=== PATIENT | female | born 1985 | race Two or more races ===

== ENCOUNTER 2024-02-19 15:38 | Emergency (ER) | payer OTHER, MEDICAID, SELFPAY ==
[2024-02-19 16:07] VITALS: BP 117/78; PULSE 86; RESP 19; TEMP 36.8; O2SAT 98
[2024-02-19 16:08] VITALS: BMI 26.8
--- NOTE | 2024-02-19 16:12 | XR_ITS ---
Examination: Complete OB ultrasound greater than 14 weeks Date and time of exam: February 19, 2024 1709 hours INDICATIONS: Early by history with onset pelvic pain beginning 2 days ago Findings: Viable intrauterine single fetus with single amniotic sac presentation variable Cardiac motion 140 BPM Placenta posterior grade 1 Umbilical cord insertion seen Amniotic fluid index 10.3 cm Cervix 7.7 cm Ovaries obscured by the uterus Uterine masses right lateral 6.2 x 5.5 x 4.3 cm anterior uterus 6.5 x 7.1 x 7.7 cm posterior uterus 7.1 x 6.3 x 6.6 cm. Composite estimated gestational age based on BPD, head circumference, abdominal circumference, femur length is 15 weeks 4 days Estimated weight 143.8 g Cervix 7.7 cm closed. Survey of intracranial anatomy, spinal anatomy, abdominal anatomy, four-chamber heart performed with no abnormalities identified. IMPRESSION: Viable intrauterine gestation Large uterine areas of fibroid degeneration as above.
--- NOTE | 2024-02-19 16:12 | PD.EDRME ---
Rapid Medical Screening Exam RME Arrival date/time: 02/19/24 15:38 39-year-old female approximately 14 weeks presents emergency department complains of lower abdominal pain, pelvic pain and back pain Chief Complaint: Abdominal Pain Time Seen by Provider: 02/19/24 16:10 Vital signs: Vital Signs Temperature 98.2 F 02/19/24 16:07 Pulse Rate 86 02/19/24 16:07 Respiratory Rate 19 02/19/24 16:07 Blood Pressure 117/78 02/19/24 16:07 Pulse Oximetry (%) 98 02/19/24 16:07 Oxygen Delivery Method Room Air 02/19/24 16:07
[2024-02-19 16:36] LABS: Basophils % (Auto) 0 % (0-2.5); Eosinophils # (Auto) 0.1 Thou/mm3 (0.0-0.5); Eosinophils % (Auto) 1 % (0-10); Hematocrit 33.5 % (36.0-46.0); Hemoglobin 11.7 g/dL (12.0-16.0); Immature Granulocytes % (Auto) 1 % (0-0); Immature Granulocytes Auto 0.06 Thou/mm3 (0.00-0.00); Lymphocytes % (Auto) 17 % (10-50); Mean Corpuscular HGB Conc 34.9 g/dl (31.0-37.0); Mean Corpuscular Hemoglobin 31.1 pg (25.0-35.0); Mean Corpuscular Volume 89 fL (80-100); Monocytes # (Auto) 0.8 Thou/mm3 (0.0-0.8); Monocytes % (Auto) 6 % (0-12); Neutrophils # (Auto) 9.1 Thou/mm3 (1.8-7.7); Neutrophils % (Auto) 75 % (37-80); Nucleated Red Blood Cell % 0 /100 WBC (0); Platelet Count 267 Thou/mm3 (140-440); RDW Standard Deviation 42.1 fL (36.4-46.3); Red Blood Count 3.76 Miln/mm3 (4.00-5.20); White Blood Count 12.1 Thou/mm3 (3.6-11.0)
[2024-02-19 16:53] LABS: Collection Type, Urine Clean Catch
[2024-02-19 17:04] LABS: Alanine Aminotransferase 12 U/L (10-49); Albumin, Serum 4.2 gm/dL (3.5-5.0); Albumin/Globulin Ratio 1.4 (1.2-2.2); Alkaline Phosphatase 86 U/L (46-116); Anion Gap 7 (7-16); Aspartate Amino Transferase 10 U/L (0-34); BUN/Creatinine Ratio 12 Ratio (12-20); Bilirubin,Total 0.3 mg/dL (0.3-1.2); Blood Urea Nitrogen 7 mg/dL (9-23); Calcium 9.5 mg/dL (8.3-10.6); Calcium (Corrected) 9.5 mg/dL (8.5-10.1); Carbon Dioxide 23.4 mMol/L (20.0-31.0); Chloride 104 mMol/L (98-107); Creatinine (Component) 0.6 mg/dL (0.6-1.3); Estimated Creatinine Clearance 121.6 mL/min (>60); Globulin 3.1 gm/dL (2.3-3.5); Glucose 100 mg/dL (74-106); Osmolality,Calculated 266 (275-295); Potassium 4.2 mMol/L (3.4-5.1); Sodium 134 mMol/L (136-145); Total Protein 7.3 gm/dL (5.7-8.2); eGFR > 60 See Note
[2024-02-19 17:14] LABS: Bilirubin,Urine Negative (Negative); Blood,Urine Negative (Negative); Clarity,Urine Clear (Clear/Hazy); Color,Urine Colorless (Lt Yel-Yel); Glucose, Urine Negative (Negative); Ketones,Urine Negative (Negative); Leukocyte Esterase,Urine Negative (Negative); Nitrite,Urine Negative (Negative); PH,Urine 6.5 (5.0-7.0); Protein,Urine Negative (Neg - Trace); RBC,Urine < 1 /hpf (0-3); Specific Gravity,Urine 1.009 (1.001-1.035); Squamous Epithelial Cell,Urine < 1 /hpf (0-5); Urobilinogen,Urine Negative mg/dL (0.0-1.0); WBC,Urine 1 /hpf (0-5)
[2024-02-19 17:26] LABS: Beta HCG,Quantitative 30093 mIU/mL (<5.0)
--- NOTE | 2024-02-19 19:51 | PD.EDABDPN ---
ED Abdominal Pain RME/HPI General Chief Complaint: Abdominal Pain Stated complaint: lower abd/back pain x 3 days. 14 wks Time seen by provider: 02/19/24 16:10 Arrival date/time: 02/19/24 15:38 39-year-old female approximately 14 weeks 1 para 0 presents emergency department complaining of lower abdominal and back pain that is been ongoing since Monday. Patient denies any vaginal bleeding, chills, fever, dysuria, or any other associated symptom. Source: patient Mode of arrival: ambulatory Limitations: no limitations RME / HPI RME / HPI narrative: 02/19/24 15:38 39-year-old female approximately 14 weeks presents emergency department complains of lower abdominal pain, pelvic pain and back pain Related Data Previous Rx's ?Medication ?Instructions ?Recorded acetaminophen 325 mg capsule 325 mg PO QID PRN pain #30 caps 02/19/24 Allergies Allergy/AdvReac Type Severity Reaction Status Date / Time No Known Allergies Allergy Verified 02/19/24 15:39 Review of Systems Review of Systems Systems Reviewed: All systems reviewed, normal except as documented Constitutional Constitutional: Reports system reviewed and no additional complaints, except as documented, Denies body ache(s), Denies chills and Denies fever(s) Eyes Eyes: Reports system reviewed and no additional complaints, except as documented and Denies change in vision ENT Ears, Nose, Mouth, and Throat: Reports system reviewed and no additional complaints, except as documented, Denies disequilibrium, Denies dizziness, Denies sore throat and Denies vertigo Cardiovascular Cardiovascular: Reports system reviewed and no additional complaints, except as documented, Denies chest pain and Denies dyspnea Respiratory Respiratory: Reports system reviewed and no additional complaints, except as documented, Denies chest congestion, Denies cough and Denies dyspnea Gastrointestinal Gastrointestinal: Reports system reviewed and no additional complaints, except as documented, Reports abdominal pain, Denies nausea and Denies vomiting Musculoskeletal Musculoskeletal: Reports system reviewed and no additional complaints, except as documented, Denies abnormal gait, Denies arthralgias and Reports back pain Integumentary/Breasts Skin/Breast: Reports system reviewed and no additional complaints, except as documented, Denies erythema, Denies rash and Denies wounds Neurologic Neurologic: Reports system reviewed and no additional complaints, except as documented, Denies abnormal gait, Denies disequilibrium, Denies dizziness and Denies vertigo Past Medical History Past Medical History CARDIAC: Negative Congestive Heart Failure RESPIRATORY: Negative Chronic Obstructive Pulmonary Disease (COPD) GENITOURINARY: Negative Renal Disease ENDOCRINE: Negative Diabetes Mellitus Type 1 or Diabetes Mellitus Type 2 Social History SMOKING STATUS: Never smoker ED Exam General Limitations: Present no limitations General appearance: Present alert and in no apparent distress Head Head exam: Present atraumatic Eye Eye exam: Present normal appearance, PERRL and EOMI ENT ENT exam: Present normal exam, normal oropharynx and mucous membranes moist Neck Neck exam: Present normal inspection, full ROM and trachea midline Chest Chest inspection: Present normal inspection and symmetric chest wall rise Respiratory Respiratory exam: Present normal lung sounds bilaterally Cardiovascular Cardiovascular exam: Present regular rate, normal rhythm and normal heart sounds Abdominal Exam Abdominal exam: Present soft and normal bowel sounds; Absent tenderness Extremities Exam Extremities exam: Present normal inspection and full ROM Back Exam Back exam: Present normal inspection and full ROM Neurological Exam Neurological exam: Present alert, oriented X3 and CN II-XII intact Psychiatric Psychiatric exam: Present normal affect and normal mood Skin Skin exam: Present warm, dry, intact and normal color Course Course Course Narrative: Examination: Complete OB ultrasound greater than 14 weeks Date and time of exam: February 19, 2024 1709 hours INDICATIONS: Early by history with onset pelvic pain beginning 2 days ago Findings: Viable intrauterine single fetus with single amniotic sac presentation variable Cardiac motion 140 BPM Placenta posterior grade 1 Umbilical cord insertion seen Amniotic fluid index 10.3 cm Cervix 7.7 cm Ovaries obscured by the uterus Uterine masses right lateral 6.2 x 5.5 x 4.3 cm anterior uterus 6.5 x 7.1 x 7.7 cm posterior uterus 7.1 x 6.3 x 6.6 cm. Composite estimated gestational age based on BPD, head circumference, abdominal circumference, femur length is 15 weeks 4 days Estimated weight 143.8 g Cervix 7.7 cm closed. Survey of intracranial anatomy, spinal anatomy, abdominal anatomy, four-chamber heart performed with no abnormalities identified. IMPRESSION: Viable intrauterine gestation Large uterine areas of fibroid degeneration as above. Quality Measures none Orders Category Date Time Status US OB >= 14 weeks Fetus Stat Exams 02/19/24 16:12 Completed ABO/RH Type Stat Lab 02/19/24 16:19 Completed Beta HCG,Quantitative Stat Lab 02/19/24 16:19 Completed CBC Stat Lab 02/19/24 16:19 Completed Comprehensive Metabolic Panel Stat Lab 02/19/24 16:19 Completed UA [Urinalysis] Stat Lab 02/19/24 16:39 Completed Urine Culture Stat Lab 02/19/24 16:39 Received Vital Signs Vital signs: Vital Signs Temperature 98.2 F 02/19/24 16:07 Pulse Rate 86 02/19/24 16:07 Respiratory Rate 19 02/19/24 16:07 Blood Pressure 117/78 02/19/24 16:07 Pulse Oximetry (%) 98 02/19/24 16:07 Oxygen Delivery Method Room Air 02/19/24 16:07 98% on room air within normal limits Abdominal Pain MDM MDM Narrative MDM Narrative:: 39-year-old female approximately 14 weeks 1 para 0 presents emergency department complaining of lower abdominal and back pain that is been ongoing since Monday. Patient denies any vaginal bleeding, chills, fever, dysuria, or any other associated symptom. CBC mild leukocytosis 12.1 with hemoglobin 11.7. CMP was unremarkable. CMP was unremarkable for any transaminitis beta-hCG 30,000. Urinalysis was unremarkable. Ultrasound finding viable intrauterine gestation approximately 15 weeks 4 days with large areas of fibroid degeneration. Patient appears nontoxic and hemodynamically stable. Dr. Ramos on-call TAXATION ACCOUNTANT was consulted and recommends discharge home and follow-up with Dr. Bhakta patient's TAXATION ACCOUNTANT. Patient discharged home instructed to follow-up with Dr. Avendaño in 24 to 48 hours and return to emergency department for any worsening symptoms or as needed. Patient data External records reviewed:: [facility] previous records Clinical information provided by:: patient Social determinants that could affect healthcare access:: none Patient has the following chronic illnesses:: N/A How is presenting disease/condition affected by chronic disease/condition?: no chronic disease Evaluation data The following diagnostics were reviewed and interpreted by me:: lab results and radiology exam(s) Lab and/or radiology exams considered but not ordered:: Ordered Interpretation Summary: Interpreted by me Medications / Prescriptions Medications or Prescriptions considered but not ordered:: N/A Medication administrations:: N/A Consultations Consultation(s) initiated? (list below): Yes Consultation #1 (Physician, Specialty, Details): Dr. Vivar Diagnosis Differential diagnosis abdominal pain: abdominal pain, constipation and other (Torsion) Most likely diagnosis given after review of the tests above:: Uterine fibroids in Admission Indicated Admission indicated?: not indicated Admission Request Was there a request for admission?: No Disposition Plan Disposition Plan: Discharge Discharge Attestation Discharge Attestation: The patient and all family members were given an opportunity to ask questions and understood the discharge instructions. Discharge instructions specifically effects, indications for sooner follow up or return to the emergency department, and the expected course of current diagnosis. Patient condition: Stable Discharge Plan Plan Patient Disposition: HOME (Self Care) Disposition Comment: Stable Prescriptions/Referrals Prescriptions/Med Rec: New acetaminophen 325 mg capsule 325 mg PO QID PRN (Reason: pain) Qty: 30 0RF Referrals: Chau Frank MD [Primary Care Provider] - In 1 week Problem List Clinical Impression: Uterine fibroid in Patient/Caregiver Discharge Instructions Discharge Activity: activity as tolerated Education Materials: What Are Fibroids?, ED Uterine Fibroids Additional Instructions: Take Tylenol as needed for pain. Follow-up with Dr. Bhakta in 24 to 48 hours. Return to the emergency department for any worsening symptoms or as needed. Print Language: Yakut Stand Alone Forms: Shayla Award Info., Patient Portal Info Letter PA/ASSISTANT ACCOUNT EXECUTIVE Supervising Physician PA/ASSISTANT ACCOUNT EXECUTIVE Supervising Physician: Dr. Head
== END 2024-02-19 20:06 | disposition home or self-care (01) ==
PROVIDERS: Nurse Practitioner Primary Care; Emergency Provider Emergency Medicine; PCP Family Medicine
DX: O34.12 Maternal care for benign tumor of corpus uteri, second trimester (principal); D25.9 Leiomyoma of uterus, unspecified; Z3A.15 15 weeks gestation of pregnancy
CPT/HCPCS: 36415; 76805; 80053; 81001; 84702; 85025; 86900; 86901; 87086; 99284

== ENCOUNTER 2024-07-24 09:36 | Outpatient (RCR) | payer MEDICAID, SELFPAY ==
--- NOTE | 2024-06-12 10:10 | XR_ITS ---
EXAMINATION: US OB biophysical profile ORDERING PROVIDER: Tonny Vivar MD HISTORY: WEEKLY NST/BPP; AMA GDM TECHNIQUE: Multiple transabdominal sonographic images were obtained by radioisotope technologist and submitted for interpretation. COMPARISON: 02/19/2024, OB ultrasound. FINDINGS: FETUS: Sánchez. PRESENTATION: Cephalic. HEART MOTION: 136 beats/min. AMNIOTIC FLUID INDEX: 15.6 cm BREATHING MOVEMENT: 2 . GROSS BODY MOVEMENT: 2 . TONE: 2 . QUALITATIVE AMNIOTIC FLUID VOLUME: 2 TOTAL BIOPHYSICAL PROFILE: 8 of 8 . IMPRESSION: Single live intrauterine gestation with biophysical profile 8 of 8.
[2024-06-12 10:46] VITALS: BP 116/64; PULSE 81; RESP 16; TEMP 36.9
--- NOTE | 2024-06-19 09:57 | XR_ITS ---
Examination: Biophysical profile, ultrasound Date and time of exam: June 19, 2024 1001 hours INDICATIONS: Diagnosis advanced maternal age Technique: Multiple transabdominal sonographic images of the pelvis abdomen obtained. Attention is directed to the breathing movement, gross body movement, amniotic fluid volume and tone. Findings: Amniotic fluid index 16.2 cm Total biophysical profile is 8 of 8. breathing movement is 2. Gross body movement is 2. tone is 2. Qualitative amniotic fluid volume is 2 Impression: Biophysical profile is 8 of 8.
[2024-06-19 10:46] VITALS: BP 106/63; PULSE 67; RESP 16; TEMP 36.9
--- NOTE | 2024-06-26 09:44 | XR_ITS ---
Examination: Biophysical profile, ultrasound Date and time of exam: June 26, 2024 1037 hours INDICATIONS: Diagnosis advanced maternal age, diagnosis diabetes Technique: Multiple transabdominal sonographic images of the pelvis abdomen obtained. Attention is directed to the breathing movement, gross body movement, amniotic fluid volume and tone. Findings: Amniotic fluid index 10.0 cm Total biophysical profile is 8 of 8. breathing movement is 2. Gross body movement is 2. tone is 2. Qualitative amniotic fluid volume is 2 Impression: Biophysical profile is 8 of 8.
[2024-06-26 11:19] VITALS: BP 95/50; PULSE 81; RESP 16
--- NOTE | 2024-07-02 13:24 | XR_ITS ---
Examination: Biophysical profile, ultrasound Date and time of exam: July 02, 2024 1330 hours INDICATIONS: Diagnosis advanced maternal age, diagnosis gestational diabetes Technique: Multiple transabdominal sonographic images of the pelvis abdomen obtained. Attention is directed to the breathing movement, gross body movement, amniotic fluid volume and tone. Findings: Amniotic fluid index 10.6 cm Total biophysical profile is 8 of 8. breathing movement is 2. Gross body movement is 2. tone is 2. Qualitative amniotic fluid volume is 2 Impression: Biophysical profile is 8 of 8.
[2024-07-02 14:07] VITALS: BP 114/69; PULSE 71; RESP 16; TEMP 36.8
--- NOTE | 2024-07-10 10:50 | XR_ITS ---
Examination: Biophysical profile, ultrasound Date and time of exam: July 10, 2024 1053 hrs. Indications: Diagnosis advanced maternal age, diagnosis gestational diabetes Technique: Multiple transabdominal sonographic images of the pelvis abdomen obtained. Attention is directed to the breathing movement, gross body movement, amniotic fluid volume and tone. Findings: Amniotic fluid index 17 cm Total biophysical profile is 8 of 8. breathing movement is 2. Gross body movement is 2. tone is 2. Qualitative amniotic fluid volume is 2 Impression: Biophysical profile is 8 of 8.
[2024-07-10 11:26] VITALS: BP 113/71; PULSE 68; RESP 18; TEMP 36.7
--- NOTE | 2024-07-17 10:53 | XR_ITS ---
Examination: Biophysical profile, ultrasound Date and time of exam: July 17, 2024 1104 hours INDICATIONS: Diagnosis advanced maternal age, diagnosis gestational diabetes Technique: Multiple transabdominal sonographic images of the pelvis abdomen obtained. Attention is directed to the breathing movement, gross body movement, amniotic fluid volume and tone. Findings: Amniotic fluid index 15.1 cm Total biophysical profile is 8 of 8. breathing movement is 2. Gross body movement is 2. tone is 2. Qualitative amniotic fluid volume is 2 Impression: Biophysical profile is 8 of 8.
[2024-07-17 11:53] VITALS: BP 115/64; PULSE 65; RESP 16; TEMP 36.6
--- NOTE | 2024-07-24 09:59 | XR_ITS ---
Examination: Biophysical profile, ultrasound Date and time of exam: July 24, 2024 1006 hours INDICATIONS: Diagnosis advanced maternal age, diagnosis gestational diabetes Technique: Multiple transabdominal sonographic images of the pelvis abdomen obtained. Attention is directed to the breathing movement, gross body movement, amniotic fluid volume and tone. Findings: Amniotic fluid index 12.3 cm Total biophysical profile is 8 of 8. breathing movement is 2. Gross body movement is 2. tone is 2. Qualitative amniotic fluid volume is 2 Impression: Biophysical profile is 8 of 8.
[2024-07-24 10:37] VITALS: BP 106/59; PULSE 65; RESP 16; TEMP 36.4
== END 2024-07-24 23:59 | disposition home or self-care (01) ==
LOC: S4S1 09:36
PROVIDERS: PCP Student in an Organized Health Care Education/Training Program; Referring Provider Student in an Organized Health Care Education/Training Program; Visit Provider Student in an Organized Health Care Education/Training Program
DX: O09.513 Supervision of elderly primigravida, third trimester (principal); O24.410 Gestational diabetes mellitus in pregnancy, diet controlled; Z3A.38 38 weeks gestation of pregnancy
CPT/HCPCS: 59025; 76819

== ENCOUNTER 2024-07-31 09:55 | Inpatient (IN) | payer MEDICAID, SELFPAY ==
[2024-07-31] VITALS (13 sets, daily range): BP systolic 109–140; BP diastolic 64–77; PULSE 67–100; RESP 16–18; TEMP 36.7–37.1; BMI 45.3
--- NOTE | 2024-07-31 14:14 | XR_ITS ---
Examination: age limited TECHNIQUE: Limited transabdominal sonographic images pelvis Exam daytime: July 31, 2024 1542 hours INDICATIONS: Preop labor induction, unknown presentation FINDINGS: Viable intrauterine gestation cephalic presentation spine maternal right Cardiac motion 153 bpm Estimated weight 3332.6 g Estimated gestational age 37 weeks 4 days IMPRESSION: Viable intrauterine gestation in cephalic presentation
[2024-07-31 15:41] LABS: Basophils % (Auto) 0 % (0-2.5); Eosinophils % (Auto) 1 % (0-10); Hematocrit 30.8 % (36.0-46.0); Hemoglobin 10.7 g/dL (12.0-16.0); Immature Granulocytes % (Auto) 1 % (0-0); Immature Granulocytes Auto 0.04 Thou/mm3 (0.00-0.00); Lymphocytes # (Auto) 1.7 Thou/mm3 (1.0-4.8); Lymphocytes % (Auto) 25 % (10-50); Mean Corpuscular HGB Conc 34.7 g/dl (31.0-37.0); Mean Corpuscular Hemoglobin 30.8 pg (25.0-35.0); Mean Corpuscular Volume 89 fL (80-100); Monocytes # (Auto) 0.4 Thou/mm3 (0.0-0.8); Monocytes % (Auto) 5 % (0-12); Neutrophils # (Auto) 4.8 Thou/mm3 (1.8-7.7); Neutrophils % (Auto) 69 % (37-80); Nucleated Red Blood Cell % 0 /100 WBC (0); Platelet Count 185 Thou/mm3 (140-440); Red Blood Count 3.47 Miln/mm3 (4.00-5.20)
[2024-07-31 16:30] LABS: Syphilis Nonreactive (Nonreactive)
--- NOTE | 2024-07-31 17:33 | PC.NURSE ---
07/31/2024 1015: RN at bedside assuming care of pt. Pt. denies any leaking of fluid or bleeding, or feeling uterine contractions. She reports positive movement. Plan of care discussed including pain managment options and induction medications. Pt. has no further questions at this time.
--- NOTE | 2024-07-31 18:18 | PC.NURSE ---
Addendum entered by Jeannine Chamberlain RN 07/31/24 18:20: No orders received to place any units on hold for pt. at this time. Hgb is currently 10.7 Original Note: 07/31/24 2148: Called MD Caicedo and notified her of pts. uterine fibroids. Pt. had scans at [facility] and advised to take PPH precautions at delivery. Order for 2 IV lines received. MD Caicedo will review pts. stip before receiving orders for intermittent monitoring.
[2024-07-31] MEDS: MISOPROSTOL 50 mCg TABLET PO ×2 (19:40→23:40)
--- NOTE | 2024-07-31 21:11 | PD.LDHP ---
Documentation for date of: 07/31/24 OB Labor/Induct. HPI History of Present Illness Chief complaint: Admitted for induction of labor for AMA, fibroids and LGA baby : 1 Para: 0 Term pregnancies: 0 pregnancies: 0 Living children: 0 History of Abortions: Spontaneous and Elective: 0 History of Vaginal deliveries: 0 History of sections: No Date of last menstrual period: 11/01/23 THERESE: 08/07/24 Gestational Age (weeks): 39 Gestational Age (days): 0 Gestational age based on last menstrual period: 39 Indication for induction: other History of present illness: Patient is a 39-year-old G1, P0 with all care uncomplicated with [facility] who presents for scheduled induction of labor secondary to uterine fibroids. Patient states she has 2 fibroids one about 6 x 6 cm one about 8 x 8 cm. She saw the MFM's for level 2 ultrasounds. She also is AMA. The baby is measuring LGA her MFM notes. There was some question about an abnormal 1 hour glucose but a normal 2-hour glucose she has not been on any diabetic medications this . History of Present Dating criteria: LMP confirmed by 1st trimester US Adequate Care: Yes Ultrasounds: normal mid trimester US Abnormal ultrasound findings: Uterine fibroids, LGA Obstetrical complications: other (Uterine fibroids) Labs Maternal Blood Type: O Pos Labs: Positive: Herpes Type 2, Negative: RPR, Hepatitis B, Rubella Titre (Rubella nonimmune), HIV, Chlamydia, Gonorrhea, Herpes Type 1 and Group Beta Strep and Unknown: Covid-19 Past Medical History Surgical History SURGICAL: Negative Section Meds Home Medications and Allergies Home Medications ?Medication ?Instructions ?Recorded ?Confirmed ?Type aspirin 81 mg capsule 81 mg PO QDAY 07/31/24 07/31/24 History Allergies Allergy/AdvReac Type Severity Reaction Status Date / Time No Known Allergies Allergy Verified 07/31/24 10:28 OB Exam Physical Exam Vital signs: Temp Pulse Resp BP 98.7 F 67 18 109/69 07/31/24 10:31 07/31/24 20:09 07/31/24 10:31 07/31/24 20:09 Detailed Labor and Delivery Exam Dilation (cm): 1-2 Effacement (%): 60 Cervix position: posterior station: -2 Consistency: medium Presentation: Vertex Membranes: intact monitor accelerations: 15x15 monitor decelerations: None assistant terminal manager variability: Moderate (11-25) Contraction frequency (min): Irregular OB Results Labs 07/31/24 15:07 Labs: Short CBC 07/31/24 Range/Units 15:07 WBC 7.0 (3.6-11.0) Thou/mm3 Hgb 10.7 L (12.0-16.0) g/dL Hct 30.8 L (36.0-46.0) % Plt Count 185 (140-440) Thou/mm3 OB Assessment & Plan Assessment and Plan (1) Term : Status: Acute Assessment and plan: Admit for induction of labor (2) Uterine fibroids affecting : Status: Acute Assessment and plan: At risk for hemorrhage. Two IV lines and blood on hold. (3) Supervision of high risk in third trimester: Status: Acute Additional Plan Induction method: per misoprostol protocol Plan: induction (2) Uterine fibroids affecting Qualifiers: Trimester: third trimester Qualified Code(s): O34.13 - Maternal care for benign tumor of corpus uteri, third trimester; D25.9 - Leiomyoma of uterus, unspecified
[2024-08-01] VITALS (104 sets, daily range): BP systolic 99–132; BP diastolic 55–89; PULSE 62–89; RESP 16–18; TEMP 36.7–36.9; O2SAT 68–100
[2024-08-01] MEDS: MISOPROSTOL 50 mCg TABLET PO ×2 (04:01→08:10)
--- NOTE | 2024-08-01 09:18 | PC.NURSE ---
0917: Dr. Bhakta notified of pt last SVE: 1/Thick/high, posterior. Orders received to recheck 4 hours post last cytotec, If pt bishops less than 8, start cervidil.
--- NOTE | 2024-08-01 13:07 | PC.NURSE ---
1255: RN notified MD Diana of SVE: 1.5//-2 at 1250. Orders received to start cervidil.
[2024-08-01] MEDS: DINOPROSTONE 10 MG VAG.SUPP VAGINAL (13:30)
--- NOTE | 2024-08-01 18:13 | XR_ITS ---
Examination: Duplex scan of the lower extremity, unilateral left Date and time of exam: August 01, 2024 at 1842 hours INDICATIONS: Left calf pain beginning one hour ago Technique: Duplex scan of the extremity veins using B-mode/grayscale imaging and Doppler spectral analysis and color flow Attention is directed to internal echogenicity, compression and augmentation involving these veins, color flow assessment, spectral analysis Findings: Major deep venous structures in the extremity demonstrate normal course and caliber. There is no evidence of deep vein thrombosis. Normal color flow and spectral analysis Superficial varicose vein at the site of concern in the medial calf Impression: Negative for DVT..
--- NOTE | 2024-08-01 18:21 | PC.NURSE ---
1811: Call made to Dr. Yony MD regarding pt complaint of pain in the left lower extremity when walking. Pt has varicose veins, left leg palpates warm, and appears red. Pt denies chest pain, SOB, and difficulty breathing. Orders received for a STAT doppler U/S to the lower left extremity to rule out DVT.
[2024-08-02] VITALS (238 sets, daily range): BP systolic 97–133; BP diastolic 55–81; PULSE 61–92; RESP 16–18; TEMP 2.7–36.8; O2SAT 97–100
[2024-08-02] MEDS: RINGERS LACTATED 1000 ML 1,000 ML 100 ML IV ×2 (04:53→10:53)
[2024-08-02] MEDS: OXYTOCIN in NS 30 units 30 UNIT/500 ML BAG IV (05:10)
--- NOTE | 2024-08-02 10:13 | ESPR_ITS ---
Documentation for date of: 08/01/24 OB Labor Progress Note Pelvic Exam Dilation (cm): 1-2 Effacement (%): 30 station: -2 Amniotic membrane status: Intact Status status: Category l Assessment and Plan Comments: This is documentation for 08/01/2024, being dictated on 08/02/2024 39-year-old with uncomplicated care through [facility] presents for scheduled induction of labor due to uterine fibroids and AMA. She has two fibroids measuring approximately 6?6 cm and 8?8 cm. Per MFM, fetus measures LGA; prior glucose screen showed abnormal 1-hour but normal 2- hour values, with no need for pharmacologic management. M recommended trial of vaginal delivery. Induction began on 07/31 with 4 doses of misoprostol, followed by Cervidil, which was expelled spontaneously at ~2:00 AM today (08/02). Patient is currently on Pitocin. Last cervical exam: 1 cm / 50% / ?3 station. Membranes intact. GBS status currently unknown; [facility] records not available. tracing has remained reassuring, category I throughout. I received sign-out from Dr. Caicedo (on-call 07/31) and handed off care to Dr. Vivar (on-call 08/02).
--- NOTE | 2024-08-02 10:58 | PD.LDPN ---
Documentation for date of: 08/02/24 OB Labor Progress Note Pelvic Exam Dilation (cm): 1-2 Effacement (%): 30 station: -2 Amniotic membrane status: Intact Comments: On examination cervix is very deflected to the left of the patient at about 2 o'clock position cervix is very thick effacement about 30% dilation about 1 to 2 cm. Patient has received 1 round of Cytotec and 1 Cervidil and was started on Pitocin yesterday night. However given the low Hendrix score patient was switched back to Cytotec. Patient was also offered mechanical Cook's catheter to help dilate the cervix. An hour of observation before the next Cytotec can be given. Cook's catheter placed with 70 cc of inflation. Since placement of Cook's catheter was difficult patient was given 1 dose of fentanyl to relieve her pain. Pitocin to be stopped Contractions Monitor mode: External Contraction frequency: 2-5.5 Contraction intensity: Mild Status status: Category l
--- NOTE | 2024-08-02 11:13 | PC.NURSE ---
1034: bedside to perform SVE on pt. SVE:.5/. educated pt on pitocin, cytotec and the cooks cervical ripening balloon. MD ordered blood glucose checks to be done Q4: fasting and 1 hour postprandial, a cooks balloon to be placed, and cytotec 50mcg PO q6, continuous monitoring, CC diet. MD discussed changing the POC from pitocin to cytotec and cooks balloon. Pt agrees, all questions answered.
[2024-08-02] MEDS: fentaNYL CIT INJ 50 mCg/ML AMP 2ML 100 MCG IV (11:21)
[2024-08-02] MEDS: MISOPROSTOL 50 mCg TABLET PO ×2 (11:42→18:37)
--- NOTE | 2024-08-02 14:32 | PC.NURSE ---
1430: MD Vivar called unit for pt update. Pt resting in bed, UC's are irregular and patient is comfortable, first cytotec was given at 1142. Orders to continue to check cervical balloon Q1HR.
--- NOTE | 2024-08-02 18:43 | PC.NURSE ---
1834: MD Vivar called unit for pt update. Cooks balloon still in, pt resting comfortably, rating pain 3/10. Orders received for RN to update MD at 1999.
--- NOTE | 2024-08-02 19:30 | PD.LDPN ---
Documentation for date of: 08/02/24 OB Labor Progress Note Pelvic Exam Dilation (cm): 1-2 Effacement (%): 30 station: -2 Amniotic membrane status: Intact Contractions Monitor mode: External Contraction frequency: 5 min-15min Contraction intensity: Mild Status status: Category l Assessment and Plan Comments: cooks catheter in juan vagina Cx 4-5/80/-2, well applied head AROM @1920 CNM Management Details of MD consultation: cervix is still very deflected to left However given juan well applied head , will proceed with pitocin after 4-6 hours of the last cytotec dose
[2024-08-03] VITALS (219 sets, daily range): BP systolic 86–155; BP diastolic 50–77; PULSE 65–176; RESP 16–18; TEMP 2.7–37.2; O2SAT 81–100
[2024-08-03] MEDS: RINGERS LACTATED 1000 ML 1,000 ML 100 ML IV ×2 (00:51→03:03)
[2024-08-03] MEDS: OXYTOCIN in NS 30 units 30 UNIT/500 ML BAG IV (04:47)
--- NOTE | 2024-08-03 08:21 | PD.LDPN ---
Documentation for date of: 08/03/24 OB Labor Progress Note Pelvic Exam Dilation (cm): 6 Effacement (%): 100 station: +1 Amniotic membrane status: Leaking Contractions Monitor mode: Internal Contraction frequency: 2-3 Contraction intensity: Moderate Status status: Category l Comments: pitocin to be incraesed to 6 Assessment and Plan Comments: Chiara was counseleed that large fibroids can lead to labour dystocia currently she is not having adeqaute contrcation pattern Pitocin to be incraesed until adequate contraction havereached > 4 hours after recheck to see if cervical change has occured Patientalsmyles gorman made awre that her subpubic angle is very narrow , might be a cause of should dystocia even if juan head comes out
[2024-08-03] MEDS: MINERAL OIL 30 ML UDC TOP (12:20)
[2024-08-03] MEDS: fentaNYL CIT INJ 50 mCg/ML AMP 2ML 100 MCG IV (12:39)
[2024-08-03] MEDS: MISOPROSTOL 200 mCg TABLET 800 MCG PR (12:45)
[2024-08-03] MEDS: TRANEXAMIC ACID 1,000 MG IVPB 1,000 MG/100 ML BAG 200 MG IV (12:50)
--- NOTE | 2024-08-03 13:06 | PD.LDDELS ---
Data (Sánchez) Data Hx Section: No : 1 Term: 0 : 0 Livin Abortions: Spontaneous & Theraputic: 0 Delivery Data (Sánchez) Labor Data ROM date: 08/02/24 ROM time: 19:23 Amniotic membrane rupture type: Spontaneous Amniotic fluid description: Clear Delivery Data Delivered by: Tonny Vivar
[2024-08-03] MEDS: OXYTOCIN in NS 20 units 20 UNIT/1,000 ML BAG 125 UNIT IV (13:07)
[2024-08-03] MEDS: BENZO/LANO/ALOE (Dermoplast) 60 GM CAN 1 SPRAY TOP (13:07)
[2024-08-03] MEDS: IBUPROFEN TAB 400 MG TABLET 800 MG PO (14:10)
[2024-08-03] MEDS: ceFAZolin/D5W 2 GM IV 2 GM/100 ML BAG IV (14:11)
[2024-08-03 19:44] LABS: Basophils # (Auto) 0.1 Thou/mm3 (0.0-0.2); Basophils % (Auto) 0 % (0-2.5); Eosinophils % (Auto) 0 % (0-10); Hemoglobin 10.7 g/dL (12.0-16.0); Immature Granulocytes % (Auto) 0 % (0-0); Immature Granulocytes Auto 0.08 Thou/mm3 (0.00-0.00); Lymphocytes % (Auto) 11 % (10-50); Mean Corpuscular HGB Conc 33.4 g/dl (31.0-37.0); Mean Corpuscular Hemoglobin 30.7 pg (25.0-35.0); Mean Corpuscular Volume 92 fL (80-100); Monocytes # (Auto) 1.2 Thou/mm3 (0.0-0.8); Monocytes % (Auto) 6 % (0-12); Neutrophils # (Auto) 15.9 Thou/mm3 (1.8-7.7); Neutrophils % (Auto) 83 % (37-80); Nucleated Red Blood Cell % 0 /100 WBC (0); Platelet Count 159 Thou/mm3 (140-440); RDW Standard Deviation 55.8 fL (36.4-46.3); Red Blood Count 3.49 Miln/mm3 (4.00-5.20); White Blood Count 19.3 Thou/mm3 (3.6-11.0)
[2024-08-03] MEDS: ACETAMINOPHEN 325 MG TABLET 650 MG PO (20:48)
--- NOTE | 2024-08-03 23:38 | OBDSUM_ITS ---
Data (Sánchez) Data Hx Section: No : 1 Term: 0 : 0 Livin Abortions: Spontaneous & Theraputic: 0 Delivery Data (Sánchez) Labor Data Initiation of labor: Induction Induction/Augmentation Agent: Cytotec-PO, Cervidil, Cervical Balloon, Pitocin and Artificial ROM ROM date: 08/02/24 ROM time: 19:23 Amniotic membrane rupture type: Spontaneous Amniotic fluid description: Clear Delivery Data Onset of labor date: 08/03/24 Onset of labor time: 03:32 Complete dilation date: 08/03/24 Complete dilation time: 10:48 [place] delivery date: 08/03/24 [place] delivery time: 12:25 Gestational age (weeks): 39 Gestational age (days): 3 Placenta delivery date: 08/03/24 Placenta delivery time: 12:40 Stage 1 total time: Labor - Stage 1 Duration 7 hours and 16 minutes Delivered by: Tonny Vivar Delivery nurse: Nicole Su RN [place] nurse: Vickie Funk RN [employer] Supervisor at delivery: No Support person(s) at delivery: Patient mother and boyfriend. EBL Estimated blood loss (ml): 150 Umbilical Cord Placenta/Cord Complication: Retained Placenta and Other (placenta was manually extracted as the cord avulsed . Patinet was given 2 gm cefazolin. Placenta was removed in entirety , bimanual examination revealed no placental remnants ) Data (Sánchez) [place] Data order: 1 's gender: Female Identification band number: [id number] weight (gms): 3120 g Weight (pounds): 6 lbs and 14.1 ozs [place] length: 52 cm 1 minute: 9 5 minutes: 9 Additional Comments Additional comments: Body delivered atraumatic During controlled cord traction , avulsion if juan cord resulted
[2024-08-04 05:00] VITALS: BP 111/70; PULSE 82; RESP 18; TEMP 36.8; O2SAT 98
[2024-08-04] MEDS: IBUPROFEN TAB 400 MG TABLET 800 MG PO ×2 (05:12→13:00)
[2024-08-04 08:00] VITALS: BP 118/79; PULSE 78; RESP 18; TEMP 36.6; O2SAT 98
--- NOTE | 2024-08-04 08:23 | PD.LDPPPRG ---
Subjective Subjective Interval history: Patient is a 39-year-old G1 now P1 001 status post vaginal delivery by Dr. Vivar late yesterday morning. The patient had been induced for 3 days. She had a manual removal of the placenta but otherwise the delivery was uncomplicated. The patient is walking around her room today. She reports her pain is controlled with ibuprofen. She is working on breast-feeding. Her is at bedside. She very much wants to go home today. Exam Vital Signs Temp Pulse Resp BP Pulse Ox O2 Del Method 98.3 F 82 18 111/70 98 Room Air 08/04/24 05:00 08/04/24 05:00 08/04/24 05:00 08/04/24 05:00 08/04/24 05:00 08/04/24 05:00 Narrative Exam Patient is alert and oriented x 3 in no apparent distress fundus is firm nontender extremities show no significant edema or erythema. Objective Labs 08/03/24 19:23 Labs: Laboratory Results - last 24 hr 07/31/24 08/03/24 15:07 19:23 WBC 19.3 H D RBC 3.49 L Hgb 10.7 L Hct 32.0 L MCV 92 MCH 30.7 MCHC 33.4 RDW Std Deviation 55.8 H Plt Count 159 Neut % (Auto) 83 H Lymph % (Auto) 11 [place] % (Auto) 6 Eos % (Auto) 0 Baso % (Auto) 0 Neut # (Auto) 15.9 H Lymph # (Auto) 2.0 [place] # (Auto) 1.2 H Eos # (Auto) 0.0 Baso # (Auto) 0.1 Immature Gran # (Auto) 0.08 H Absolute Nucleated RBC 0.00 Immature Gran % 0 Nucleated RBC % 0 Crossmatch See Detail Assessment & Plan Problem List (1) Uterine fibroids affecting : Status: Acute Assessment and plan: Patient made it to over 39 weeks. She was told to keep an eye on her fibroids yearly with ultrasounds. I did discourage removal of the fibroids as she was able to deliver vaginally. I told the patient if she gets her fibroids removed she will need a and have a higher chance of uterine rupture. (2) Term delivered: Status: Acute Assessment and plan: Patient was told about breast-feeding resources. She will be discharged home to follow-up with [facility] in 3 weeks discharge instructions given. Time Spent With Patient Time: Total time spent is greater than 50% in coordination of care (as documented) at patient's floor/unit and/or counseling patient:
[2024-08-04] MEDS: MEASLES, MUMPS & RUBELLA VACC 0.5 ML VIAL SCi (08:24)
[2024-08-04] MEDS: ACETAMINOPHEN 325 MG TABLET 650 MG PO (08:25)
--- NOTE | 2024-08-04 08:26 | ESDS_ITS ---
DS: Providers Provider Date of admission: 07/31/24 09:55 Primary care physician: Physician No Primary/Family Admitting Provider: [facility] Ca[facility] ([facility]) Attending Provider on Admission: Jonathan Bhakta MD Consults: 08/03/24 13:06 Referral Routine Comment: Attending Provider on DC: Belle Caicedo MD ([facility]) Discharging Provider: Belle Caicedo MD ([facility]) Anticipated date of discharge: 08/04/24 DS: Diagnosis Discharge Diagnosis (1) Term delivered: Status: Acute Assessment & Plan: Discharge instructions given including pelvic rest x 6 weeks. No intercourse , tampons or douching x 6 weeks information on breast-feeding resources given. [facility] (2) Uterine fibroids affecting : Status: Acute Assessment & Plan: Recommended yearly ultrasounds to check size of fibroids. Discouraged removal of fibroids in the form of a myomectomy as this would create a higher risk next time and patient would need a scheduled . This would increase her chance of uterine rupture. Patient agrees. Problem List Completed Was Problem List Reviewed/Reconciled?: Yes Summary/Hosp Course Brief History: Patient is a 39-year-old G1, P0 with [facility] who presents for scheduled induction of labor secondary to u terine fibroids. Patient states she has 2 fibroids one about 6 x 6 cm one about 8 x 8 cm. She saw the [facility]'s for level 2 ultrasounds. She also is AMA. The baby is measuring LGA her [facility] notes. There was some question about an abnormal 1 hour glucose but a normal 2-hour glucose she has not been on any diabetic medications this . The patient went on to deliver August 03, [address] Vivar. It was an uncomplicated vaginal delivery with a manual removal of placenta at bedside. Please see delivery notes for further details. Post course was uncomplicated and the patient was discharged home day #1 in stable condition. Peripartum Data Delivery Method: Normal Vaginal Delivery Episiotomy Description: None Laceration Description: see Delivery Summary complications: none Status at Discharge Cognitive/behavioral status at discharge: Patient is alert and oriented x 3 in no apparent distress Functional status at discharge: independent ambulation Overall status at discharge: patient is progressing back to baseline Time Spent with Patient Time attestation: Total time spent providing and/or coordinating discharge services: Time spent: Less than 30 minutes Exam Vital Signs Temp Pulse Resp BP Pulse Ox O2 Del Method 98.3 F 82 18 111/70 98 Room Air 08/04/24 05:00 08/04/24 05:00 08/04/24 05:00 08/04/24 05:00 08/04/24 05:00 08/04/24 05:00 Fundus is firm nontender below her umbilicus. Extremities show no significant edema or erythema Discharge Plan Plan Patient Disposition: HOME (Self Care) Disposition Comment: Stable Patient condition on transfer: Stable Prescriptions/Referrals Prescriptions/Med Rec: New acetaminophen 325 mg Tablet 650 mg PO Q4H PRN (Reason: See Comments) Qty: 60 0RF Dermoplast (with menthol) 20-0.5 % Aerosol 1 spray top PRN PRN (Reason: Perineal Discomfort) Qty: 1 0RF ibuprofen 400 mg Tablet 800 mg PO Q8H PRN (Reason: See Comments) Qty: 60 0RF Discontinued acetaminophen 325 mg capsule 325 mg PO QID PRN (Reason: pain) Qty: 30 0RF aspirin 81 mg capsule 81 mg PO QDAY Referrals: No Primary/Family,Physician [Primary Care Provider] - Patient/Caregiver Discharge Instructions Discharge Activity: activity as tolerated Other Discharge Activity Instructions:: Pelvic rest x 6 weeks no intercourse tampons or douching x 6 weeks Other Discharge Diet Instructions: Regular diet Education Materials: After a Vaginal , Breastfeed Holds, Breast Care After , , : Caring for Yourself Print Language: Latvian Activity Restrictions/Additional Instructions: Call for heavy vaginal bleeding, fevers, depression. Follow-up with [facility] [place] [facility] in 3 weeks Stand Alone Forms: Shayla Award Info., Patient Portal Info Letter Discharge Order Discharge Orders: Discharge (Routine); Ordered 08/04/24 Ordered By: Belle Caicedo ([facility]) Planned Discharge Date 08/04/24 (2) Uterine fibroids affecting Qualifiers: Trimester: third trimester Qualified Code(s): O34.13 - Maternal care for benign tumor of corpus uteri, third trimester; D25.9 - Leiomyoma of uterus, unspecified
[2024-08-04 12:25] VITALS: BP 133/85; PULSE 68; RESP 16; TEMP 36.6; O2SAT 99
== END 2024-08-04 14:25 | disposition home or self-care (01) | DRG 560 ==
LOC: S4SX 08-02 08:06 → S4NX 08-03 16:29
PROVIDERS: Student in an Organized Health Care Education/Training Program; Admitting Provider Obstetrics & Gynecology; Visit Provider Obstetrics & Gynecology
DX: O36.63X0 Maternal care for excessive fetal growth, third trimester, not applicable or unspecified (principal); O34.13 Maternal care for benign tumor of corpus uteri, third trimester; D25.9 Leiomyoma of uterus, unspecified; Z37.0 Single live birth; Z3A.39 39 weeks gestation of pregnancy; Z79.82 Long term (current) use of aspirin
CPT/HCPCS: 36415; 59409; 76815; 85025; 86780; 86850; 86900; 86901; 86923; 90707; 93971; 94762; J0689; J2590; J2795; J3010; J3490; J7120; S0191; A9270